=== PATIENT | male | born 1990 | race Two or more races ===

== ENCOUNTER 2023-05-08 14:50 | Emergency (ER) | payer SELFPAY ==
[2023-05-08] MEDS ORDERED: Bacitracin Oint 1 GM U/D Packet TOP ONE (15:22)
[2023-05-08] MEDS ORDERED: Cephalexin 500 MG Cap PO ONE (15:22)
== END 2023-05-08 16:17 | disposition home or self-care (01) ==
LOC: FB.ED 14:50
DX: S61.213A Laceration without foreign body of left middle finger without damage to nail, initial encounter (principal); L03.012 Cellulitis of left finger; Z79.899 Other long term (current) drug therapy; W26.8XXA Contact with other sharp object(s), not elsewhere classified, initial encounter
CPT/HCPCS: 99283; A9270-GY

== ENCOUNTER 2023-05-18 05:56 | Emergency (ER) | payer SELFPAY ==
[2023-05-18] MEDS ORDERED: Lidocaine 1% 20 ML MDV INFILT ONE (05:57)
== END 2023-05-18 06:41 | disposition home or self-care (01) ==
LOC: FB.ED 05:56
DX: S61.213A Laceration without foreign body of left middle finger without damage to nail, initial encounter (principal); W26.8XXA Contact with other sharp object(s), not elsewhere classified, initial encounter
CPT/HCPCS: 12002; 99282

== ENCOUNTER 2023-12-10 04:08 | Emergency (ER) | payer MEDICAID ==
[2023-12-10] MEDS: LORazepam 0.5 MG Tab PO ONE (04:28)
[2023-12-10 04:41] LABS: BASOPHILS ABSOLUTE AUTO 0.1 x10-3/uL (0.0-0.3); BASOPHILS PERCENT AUTO 0.7 % (0.3-3.8); EOSINOPHILS ABSOLUTE AUTO 0.8 x10-3/uL (0.0-0.6); EOSINOPHILS PERCENT AUTO 8.7 % (0.1-6.8); HEMATOCRIT 40.7 % (38.3-50.1); HEMOGLOBIN 14.1 g/dL (12.9-17.7); LYMPHOCYTES ABSOLUTE AUTO 2.4 x10-3/uL (0.5-4.5); LYMPHOCYTES PERCENT AUTO 24.8 % (15.8-45.3); MEAN CORPUSCULAR HEMOGLOBIN 30.1 pg (27.0-33.3); MEAN CORPUSCULAR HGB CONC 34.6 g/dL (28.7-35.3); MEAN PLATELET VOLUME 8.8 fL (6.7-11.0); MONOCYTES ABSOLUTE AUTO 0.8 x10-3/uL (0.0-1.2); MONOCYTES PERCENT AUTO 7.9 % (5.5-15.2); NEUTROPHILS ABSOLUTE AUTO 5.6 x10-3/uL (1.7-6.9); NEUTROPHILS PERCENT AUTO 57.9 % (40.3-71.8); PLATELET COUNT,PLT 280 x10(3)uL (117-477); RED BLOOD CELL COUNT 4.67 x10(6)uL (3.90-5.90); RED CELL DISTRIBUTION WIDTH 12.9 % (12.4-15.0); WHITE BLOOD CELL COUNT,WBC 9.7 x10-3/uL (3.2-10.1)
[2023-12-10 04:44] LABS: BLOOD UREA NITROGEN,BUN 12 mg/dL (7-18); BUN/CREATININE RATIO 9.2 (9-20); CALCIUM 8.9 mg/dL (8.6-10.2); CARBON DIOXIDE,CO2 31 mmol/L (21-32); CHLORIDE,CL 101 mmol/L (100-110); CREATININE 1.3 mg/dL (0.70-1.30); ESTIMATED GFR 75 mL/min (>60); GLUCOSE RANDOM 97 mg/dL (80-116); POTASSIUM,K 3.9 mmol/L (3.5-5.3); SODIUM,NA 139 mmol/L (135-145)
[2023-12-10 04:49] LABS: A/G RATIO 0.9; ALANINE AMINOTRANSFERASE,ALT 18 U/L (12-36); ALBUMIN 3.3 g/dL (3.5-5.2); ALKALINE PHOSPHATASE 84 IU/L (56-112); ASPARTATE AMNIOTRANSFERASE,AST 17 IU/L (5-25); BILIRUBIN TOTAL 0.2 mg/dL (0.1-1.3); PROTEIN TOTAL,TP 7.1 g/dL (6.0-8.0)
== END 2023-12-10 05:00 | disposition home or self-care (01) ==
LOC: FB.ED 04:08
DX: F41.9 Anxiety disorder, unspecified (principal)
CPT/HCPCS: 36415; 71250; 80053; 85025; 99283; 99285; A9270

== ENCOUNTER 2023-12-14 00:57 | Emergency (ER) | payer MEDICAID | END 2023-12-14 01:37 | disposition home or self-care (01) | LOC: FB.ED 00:57 | DX: Z53.21 Procedure and treatment not carried out due to patient leaving prior to being seen by health care provider (principal) ==

== ENCOUNTER 2025-02-26 02:21 | Emergency (ER) | payer OTHER, MEDICAID | END 2025-02-26 02:44 | LOC: FB.ED 02:21 | DX: Z02.89 Encounter for other administrative examinations (principal); F17.200 Nicotine dependence, unspecified, uncomplicated; J06.9 Acute upper respiratory infection, unspecified; M25.511 Pain in right shoulder; G89.29 Other chronic pain | CPT/HCPCS: 99283 ==